=== PATIENT | female | born 1995 | race Caucasian/White ===

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

== ENCOUNTER 2017-02-13 16:12 | Emergency (ER) | payer BC ==
[~2017-02-13] VITALS: Ht 157.5 cm; Wt 63.5 kg
[2017-02-13 16:36] VITALS: BP 130/65
[2017-02-13] MEDS ORDERED: MORPHINE SULFATE 10 MG/ML VIAL. IM ONE (17:15)
[2017-02-13 17:22] LABS: BILIRUBIN,URINE NEGATIVE (NEG); GLUCOSE,URINE NEGATIVE (NEG); NITRITE,URINE NEGATIVE (NEG); PROTEIN,URINE NEGATIVE (NEG-TRACE); UROBILINOGEN,URINE 0.2 mg/dL (0.2 mg/dL)
--- NOTE | 2017-02-13 17:28 | PHYS DOC ---
Past Medical History Past Medical History: Endometriosis, Kidney Infection Additional Past Medical Histor: interstitial cystitis,COLITIS Past Surgical History: Other Additional Past Surgical Histo: exp lap x 2, cystoscopy Alcohol Use: None Drug Use: None Adult General Chief Complaint Chief Complaint: PELVIC PAIN [facility] HPI Patient is a 21 year old female who presents the emergency room with complaint of pelvic pain for the past 3 days. Patient also has a complaint of a mucoid discharge as well. Patient states that she had an IUD placed [address] José. She reports over no complications with insertion of the IUD. Patient does have a history of endometriosis and interstitial cystitis. She denies dysuria or hematuria. She denies fevers, chills, myalgias or arthralgias. Patient denies history of previous STDs or PID. Patient states that she took a [employer] 5/325 at approximately 1:30 or 2 PM today and states that it is not anything to "touch my pain". Review of Systems Review of Systems Constitutional: Denies fever or chills [] Eyes: Denies change in visual acuity, redness, or eye pain [] HENT: Denies nasal congestion or sore throat [] Respiratory: Denies cough or shortness of breath [] Cardiovascular: No additional information not addressed in HPI [] GI: Denies abdominal pain, nausea, vomiting, bloody stools or diarrhea [] : Denies dysuria or hematuria [] Musculoskeletal: Denies back pain or joint pain [] Integument: Denies rash or skin lesions [] Neurologic: Denies headache, focal weakness or sensory changes [] Endocrine: Denies polyuria or polydipsia [] Current Medications Current Medications Current Medications Medications (Trade) Dose Ordered Sig/Kaleb Start Time Stop Time Status Last Admin Dose Admin Acetaminophen/ Hydrocodone Bitart (Lortab 5/325) 2 tab 1X ONCE 02/13/17 19:15 02/13/17 19:16 DC 02/13/17 19:30 2 TAB Morphine Sulfate 5 mg 1X ONCE 02/13/17 17:15 02/13/17 17:16 DC 02/13/17 17:21 5 MG Allergies Allergies Allergies Coded Allergies Type Severity Reaction Last Updated Verified adhesive Allergy Intermediate 01/23/16 Yes latex Allergy Intermediate 01/23/16 Yes Physical Exam Physical Exam Constitutional: Well developed, well nourished, no acute distress, non-toxic appearance. Patient is afebrile. HENT: Normocephalic, atraumatic, bilateral external ears normal, oropharynx moist, no oral exudates, nose normal. [] Eyes: PERRLA, EOMI, conjunctiva normal, no discharge. [] Neck: Normal range of motion, no tenderness, supple, no stridor. [] Cardiovascular:Heart rate regular rhythm, no murmur [] Lungs & Thorax: Bilateral breath sounds clear to auscultation [] Abdomen: Patient's abdomen is soft and nondistended. There are normoactive bowel sounds normal quadrants. There is no palpable defect to the abdominal wall or pulsatile mass. Patient complains of suprapubic tenderness upon palpation. There is no guarding or rebound tenderness. Pelvic exam: External genitalia is normal in appearance. There is a scant amount of dark blood in the vaginal vault. Cervix is normal in appearance with 2 strings seen. There is no cervical motion tenderness. Bimanual exam reveals tenderness to palpation to the uterus and right adnexa. There is no palpable defect, deformity or mass. Skin: Warm, dry, no erythema, no rash. [] Back: No tenderness, no CVA tenderness. [] Extremities: No tenderness, no cyanosis, no clubbing, ROM intact, no edema. [] Neurologic: Alert and oriented X 3, normal motor function, normal sensory function, no focal deficits noted. [] Psychologic: Affect normal, judgement normal, mood normal. [] Current Patient Data Vital Signs Vital Signs Date Time Temp Pulse Resp B/P Pulse Ox O2 Delivery O2 Flow Rate FiO2 02/13/17 19:30 14 97 Room Air 02/13/17 16:36 98 90 130/65 98.0 Lab Values Laboratory Tests Test 02/13/17 15:55 02/13/17 16:43 POC Urine HCG, Qualitative Hcg negative (Negative) Urine Collection Type Unknown Urine Color Yellow Urine Clarity Clear Urine pH 7.0 Urine Specific [place] 1.020 Urine Protein Negativemg/dL (NEG-TRACE) Urine Glucose (UA) Negativemg/dL (NEG) Urine Ketones (Stick) Negativemg/dL (NEG) Urine Blood Large (NEG) Urine Nitrite Negative (NEG) Urine Bilirubin Negative (NEG) Urine Urobilinogen Dipstick 0.2mg/dL (0.2 mg/dL) Urine Leukocyte Esterase Moderate (NEG) Urine RBC 0/HPF (0-2) Urine WBC 20-40/HPF (0-4) Urine Squamous Epithelial Cells Mod/LPF Urine Bacteria 0/HPF (0-FEW) Microbiology 02/13/17 Wet Prep - Final, Complete EKG EKG [] Radiology/Procedures Radiology/Procedures [facility] [address] [place] [address] IMAGING REPORT Signed PATIENT: HARPER CARR ACCOUNT: [id number] : 1995 LOCATION: ER AGE: 21 SEX: F EXAM STATUS: REG ER ORD. PHYSICIAN: DWAINE HARE REASON: RIGHT adnexal pain, HCG negative PROCEDURE: PELVIS W/TV PROCEDURE Pelvic sonogram. HISTORY Right pelvic pain. TECHNIQUE Transabdominal and transvaginal. COMPARISON None available. FINDINGS The uterus measures 8.2 x 5.1 x 4.0 centimeter. The endometrial stripe measures 5.9 millimeter and contains an IUD. Bilateral ovaries are normal. The right ovary measures 3.8 x 3.5 x 3.5 centimeter and the left ovary measures 2.7 x 1.8 x 1.8 centimeter. There is a small complex cyst measuring 3.3 x 2.8 x 2.2 centimeter in the right ovary probably hemorrhagic. Left ovarian follicles. IMPRESSION Normal uterus and left ovary. Complex cyst measuring 3.3 x 2.8 x 2.2 centimeter in the right ovary likely a hemorrhagic cyst. Electronically signed by: Christine Recinos MD (Feb 13, 2017 19:22:31) DICTATED and SIGNED BY: CHRISTINE RECINOS MD DATE: 02/13/171921 CC: DWAINE HARE; LEORA LARA MD ~ Course & Med Decision Making Course & Med Decision Making Patient states that she has a history of ovarian cyst. This was during the physical exam and during the history taking. She states that she did talk to Dr. Maira José prior to coming in and it was recommended that an ultrasound be performed. The product evangelist informed nursing staff that patient is been seen several times at [facility] as well as this facility. Evidently, she changes her middle initial between a when she is seen here and L when she is seen at [facility]. Tim Disclaimer Tim Disclaimer This electronic medical record was generated, in whole or in part, using a voice recognition dictation system. Departure Departure Impression: Primary Impression: Pelvic pain Additional Impression: Ovarian cyst Disposition: HOME, SELF-CARE Condition: GOOD Referrals: LEORA LARA MD (PCP) FAITH JOSÉ MD Patient Instructions: Ovarian Cyst, [id number], Pelvic Pain, Female, Easy-to- Read Additional Instructions: 1. There is no evidence of a bacterial infection, ovarian torsion or need for surgery at this time. 2. Review the discharge instructions provided for self-care and reasons to return to the emergency department. 3. Contact Dr. José's office in the morning to schedule follow-up appointment. Scripts Hydrocodone/Apap 5-325 ([employer] 5-325 Tablet)1 Each Tablet1-2 Tab PO PRN Q6HRS PRN PAIN #20 TAB Prov:DWAINE HARE 02/13/17 Problem Qualifiers DWAINE HARE Feb 13, 2017 17:28
[2017-02-13 17:34] LABS: BACTERIA,URINE 0 /HPF (0-FEW); RBC,URINE 0 /HPF (0-2); SQUAMOUS EPITHELIAL CELL,UR MOD /LPF; WBC,URINE 20-40 /HPF (0-4)
[2017-02-13] MEDS ORDERED: HYDROCODONE/APAP 5/325MG TABLET. PO ONE (19:15)
--- NOTE | 2017-02-13 19:23 | RAD ---
PROCEDURE Pelvic sonogram. HISTORY Right pelvic pain. TECHNIQUE Transabdominal and transvaginal. COMPARISON None available. FINDINGS The uterus measures 8.2 x 5.1 x 4.0 centimeter. The endometrial stripe measures 5.9 millimeter and contains an IUD. Bilateral ovaries are normal. The right ovary measures 3.8 x 3.5 x 3.5 centimeter and the left ovary measures 2.7 x 1.8 x 1.8 centimeter. There is a small complex cyst measuring 3.3 x 2.8 x 2.2 centimeter in the right ovary probably hemorrhagic. Left ovarian follicles. IMPRESSION Normal uterus and left ovary. Complex cyst measuring 3.3 x 2.8 x 2.2 centimeter in the right ovary likely a hemorrhagic cyst. Electronically signed by: Christine Recinos MD (Feb 13, 2017 19:22:31)
[2017-02-13] MEDS ORDERED: HYDR-971 PO (19:31)
== END 2017-02-13 19:36 | disposition home or self-care (01) ==
LOC: ER 16:12
DX: N83.201 Unspecified ovarian cyst, right side (principal); Z91.040 Latex allergy status; Z91.048 Other nonmedicinal substance allergy status
CPT/HCPCS: 76830; 76856; 81001; 81025; 87086; 96372; 99285; J2270; Q0111

== ENCOUNTER 2017-05-06 15:14 | Emergency (ER) | payer BC, OTHER ==
[~2017-05-06] VITALS: Ht 157.5 cm; Wt 65.8 kg
[~2017-05-06 15:14] MED LIST: HYDR-971 PO
--- NOTE | 2017-05-06 15:25 | PHYS DOC ---
Past Medical History Past Medical History: Endometriosis, Kidney Infection Additional Past Medical Histor: interstitial cystitis,COLITIS Past Surgical History: Other Additional Past Surgical Histo: exp lap x 2, cystoscopy Alcohol Use: None Drug Use: None Adult General Chief Complaint Chief Complaint: PELVIC PAIN [facility] HPI 20-year-old female with a history of endometriosis status post 4 exploratory laparoscopies for chronic pelvic pain. Patient has also had anoscopy as well as multiple cystoscopies and has been diagnosed with tryst initial cystitis. She currently has an IUD in place and denies the possibility of . She presents today because of pelvic pain which she states is atypical for her as it feels like it goes into the right thigh. Denies low back pain. Baseline bowel and bladder habits with dysuria which is typical for her. Denies vaginal discharge or bleeding no odor. Pain is not worse with movement. She has no fevers chills sweats or shaking chills. No flank pain. Remainder of abdomen asymptomatic. Other than the pain in her midline pelvic area patient is asymptomatic and feels baseline Review of Systems Review of Systems Constitutional: Denies fever or chills [] Eyes: Denies change in visual acuity, redness, or eye pain [] HENT: Denies nasal congestion or sore throat [] Respiratory: Denies cough or shortness of breath [] Cardiovascular: No additional information not addressed in HPI [] GI: Denies abdominal pain, nausea, vomiting, bloody stools or diarrhea [] : Denies dysuria or hematuria [] Musculoskeletal: Denies back pain or joint pain [] Integument: Denies rash or skin lesions [] Neurologic: Denies headache, focal weakness or sensory changes [] Endocrine: Denies polyuria or polydipsia [] Current Medications Current Medications Current Medications Medications (Trade) Dose Ordered Sig/Kaleb Start Time Stop Time Status Last Admin Dose Admin Acetaminophen/ Hydrocodone Bitart (Lortab 5/325) 1 tab 1X ONCE 05/06/17 16:30 05/06/17 16:31 DC Allergies Allergies Allergies Coded Allergies Type Severity Reaction Last Updated Verified adhesive Allergy Intermediate 01/23/16 Yes latex Allergy Intermediate 01/23/16 Yes ketorolac Allergy Mild RASH 05/06/17 Yes pregabalin Allergy Mild NUMBNESS 05/06/17 Yes Physical Exam Physical Exam Well-appearing 21-year-old female smiling comfortable appearing no acute distress. Benign abdomen. Nondistended no mass or megaly. Minimal midline pelvic pain in the suprapubic distribution no guarding or rebound. Normal bowel sounds nontender McBurney's point. Constitutional: Well developed, well nourished, no acute distress, non-toxic appearance. [] HENT: Normocephalic, atraumatic, bilateral external ears normal, oropharynx moist, no oral exudates, nose normal. [] Eyes: PERRLA, EOMI, conjunctiva normal, no discharge. [] Neck: Normal range of motion, no tenderness, supple, no stridor. [] Cardiovascular:Heart rate regular rhythm, no murmur [] Lungs & Thorax: Bilateral breath sounds clear to auscultation [] Abdomen: Bowel sounds normal, soft, no tenderness, no masses, no pulsatile masses. [] Skin: Warm, dry, no erythema, no rash. [] Back: No tenderness, no CVA tenderness. [] Extremities: No tenderness, no cyanosis, no clubbing, ROM intact, no edema. [] Neurologic: Alert and oriented X 3, normal motor function, normal sensory function, no focal deficits noted. [] Psychologic: Affect normal, judgement normal, mood normal. [] Pelvic exam done with nurse present. Normal external genitalia. No discharge or odor. Normal cervix with IUD in place. No cervical motion tenderness. No adnexal mass or tenderness. Mild fundal tenderness per patient typical for her. No bleeding Current Patient Data Vital Signs Vital Signs Date Time Temp Pulse Resp B/P (MAP) Pulse Ox O2 Delivery O2 Flow Rate FiO2 05/06/17 17:23 94 17 117/73 (88) 98 Room Air 05/06/17 15:28 98.6 98.6 Lab Values Laboratory Tests Test 05/06/17 14:40 05/06/17 15:25 POC Urine HCG, Qualitative Hcg negative (Negative) Urine Collection Type Void Urine Color Yellow Urine Clarity Cloudy Urine pH 6.0 Urine Specific [place] 1.025 Urine Protein Negative mg/dL (NEG-TRACE) Urine Glucose (UA) Negative mg/dL (NEG) Urine Ketones (Stick) Negative mg/dL (NEG) Urine Blood Large (NEG) Urine Nitrite Negative (NEG) Urine Bilirubin Negative (NEG) Urine Urobilinogen Dipstick 0.2 mg/dL (0.2 mg/dL) Urine Leukocyte Esterase Moderate (NEG) Urine RBC 3-5 /HPF (0-2) Urine WBC >40 /HPF (0-4) Urine Squamous Epithelial Cells Many /LPF Urine Bacteria Many /HPF (0-FEW) Urine Mucus Slight /LPF EKG EKG [] Radiology/Procedures Radiology/Procedures [] Course & Med Decision Making Course & Med Decision Making Pertinent Labs and Imaging studies reviewed. (See chart for details). Signs and symptoms consistent with exacerbation of chronic pelvic pain which has been exhaustively and extensively worked up. Vital signs unremarkable. Pelvic exam benign. Ultrasound to rule out less likely possibility of torsion. Patient is not today. Urinalysis pending. If workup is unremarkable patient agrees with outpatient follow-up and strict return precautions will be given. Urinalysis is consistent with infection. We'll initiate treatment with Keflex. Urine culture will be pending for continued outpatient management and decision regarding whether this represents colonization versus acute infection. Ultrasound of the pelvis shows right adnexal cyst suspected ovarian cyst. Normal blood flow to both ovaries with no evidence of torsion. Patient is not no further workup or treatment is indicated. Prescription for Keflex given patient were to take outpatient analgesia regimen previously prescribed and follow-up with PCP and high lift driver regarding adnexal cyst. Patient agrees with outpatient follow-up and strict return precautions given. [] Dragon Disclaimer Dragon Disclaimer This electronic medical record was generated, in whole or in part, using a voice recognition dictation system. Departure Departure Impression: Primary Impression: Pelvic pain Disposition: HOME, SELF-CARE Condition: STABLE Referrals: NO PCP (PCP) Patient Instructions: Pelvic Pain, Female Additional Instructions: As you have experienced in the past, it is not clear today what the cause for your pelvic pain is. Your workup is unremarkable including an ultrasound of your ovaries and pelvis with no acute abnormality and you are not currently. Follow-up with your doctor tomorrow for reevaluation and referral for further workup and treatment as needed. Take ibuprofen and Tylenol as needed for pain and return immediately for new severe or worsening symptoms Scripts Cephalexin (KEFLEX) 500 Mg Capsule 1 CAP PO QID for 10 Days, #40 CAP Prov: FRANKO DUNBAR MD 05/06/17 FRANKO DUNBAR MD May 06, 2017 15:25
[2017-05-06 15:48] LABS: BILIRUBIN,URINE NEGATIVE (NEG); GLUCOSE,URINE NEGATIVE (NEG); NITRITE,URINE NEGATIVE (NEG); PROTEIN,URINE NEGATIVE (NEG-TRACE); UROBILINOGEN,URINE 0.2 mg/dL (0.2 mg/dL)
[2017-05-06 16:18] LABS: BACTERIA,URINE MANY /HPF (0-FEW); SQUAMOUS EPITHELIAL CELL,UR MANY /LPF; WBC,URINE >40 /HPF (0-4)
[2017-05-06] MEDS ORDERED: HYDROcodone/APAP 5/325MG 1 TAB TABLET PO ONE ×2 (16:30)
--- NOTE | 2017-05-06 17:00 | RAD ---
Indication pelvic pain. Initially a few transabdominal scans were obtained. These were supplemented with transvaginal scans. Note is made of a previous examination 02/13/2017. The hCG status is uncertain but for the purposes of this dictation will be assumed to be negative. The uterus measures approximately 8 x 4 x 5.5 cm. Endometrial thickness of approximately 11 mm is noted. There is an IUD. The IUD appears to have migrated relative to the previous exam and is now positioned low in the uterine body or as previously it appeared to be appropriately positioned in the body and fundus. The left ovary appears normal. The right ovary is somewhat enlarged measuring 5 cm. Within the right ovary there is a hypoechoic mass measuring approximately 3 cm in greatest dimension compatible with a physiologic cyst. It appears similar to the previous exam. Other etiologies including endometrioma or tubo-ovarian abscess are not excluded.. IMPRESSION: IUD is noted. The IUD however has migrated lower in the uterine cavity relative to the previous exam. Cystic mass right adnexa measuring approximately 3 cm. While this may represent a physiologic cyst other etiologies as discussed above are not excluded
[2017-05-06] MEDS ORDERED: NAPROXEN 500 MG TABLET PO ONE (18:15)
[2017-05-06] MEDS ORDERED: CEPH-264 PO (18:15)
[2017-05-06 18:20] VITALS: BP 122/76
== END 2017-05-06 18:26 | disposition home or self-care (01) ==
LOC: ER 15:14
DX: N39.0 Urinary tract infection, site not specified (principal); N85.8 Other specified noninflammatory disorders of uterus; G89.29 Other chronic pain; Z91.040 Latex allergy status; Z88.8 Allergy status to other drugs, medicaments and biological substances; Z91.048 Other nonmedicinal substance allergy status
CPT/HCPCS: 76830; 76856; 81001; 81025; 87086; 99285-25

== ENCOUNTER → 2017-12-08 | Outpatient (CLI) | payer OTHER ==
[2017-12-08 15:37] LABS: ADD MAN DIFF? NO
[2017-12-08 15:46] LABS: BASO # 0.1 x10^3/uL (0.0-0.2); BASO % 1 % (0-3); EOS # 0.5 x10^3/uL (0.0-0.7); EOS % 5 % (0-3); HEMATOCRIT 37.2 % (36.0-47.0); HEMOGLOBIN 12.6 g/dL (12.0-15.5); LYMPH % 22 % (24-48); MEAN CORPUSCULAR HEMOGLOBIN 30 pg (25-35); MEAN CORPUSCULAR HGB CONC 34 g/dL (31-37); MEAN CORPUSCULAR VOLUME 90 fL (79-100); MONO # 0.6 x10^3/uL (0.0-1.1); MONO % 7 % (0-9); NEUT % 65 % (31-73); PLATELET COUNT 193 x10^3/uL (140-400); RED BLOOD COUNT 4.14 x10^6/uL (3.50-5.40); RED CELL DISTRIBUTION WIDTH 16.3 % (11.5-14.5); WHITE BLOOD COUNT 9.2 x10^3/uL (4.0-11.0)
[2017-12-08 18:40] LABS: ALBUMIN 4.6 g/dL (3.4-5.0); ANION GAP 8 (6-14); BLOOD UREA NITROGEN 12 mg/dL (7-20); CALCIUM 9.3 mg/dL (8.5-10.1); CARBON DIOXIDE 30 mmol/L (21-32); CHLORIDE 99 mmol/L (98-107); CREATININE 0.6 mg/dL (0.6-1.0); GFR 127.5; GLUCOSE 115 mg/dL (70-99); POTASSIUM 3.5 mmol/L (3.5-5.1); SODIUM 137 mmol/L (136-145); TOTAL BILIRUBIN 0.2 mg/dL (0.2-1.0)
== END | disposition home or self-care (01) ==
LOC: SURGPAT 13:17
DX: Z01.818 Encounter for other preprocedural examination (principal); R10.11 Right upper quadrant pain
CPT/HCPCS: 36415; 80048; 82040; 82247; 85025

== ENCOUNTER 2017-12-16 10:01 | Day surgery (SDC) | payer OTHER ==
[~2017-12-16 10:01] MED LIST changes: +BUPIVACAINE-EPI 0.25%-1:200000 50 ML VIAL.; +GLUCAGON,HUMAN RECOMBINANT 1 MG/ML VIAL.; -HYDR-971 PO; +HYDROmorphone 2 MG/ML VIAL IV; +IOHEXOL 300 MG/ML 100ML VIAL.; +LIDOCAINE 1% PF 2 ML VIAL. ID; +MORPHINE SULFATE 2 MG/ML DISP.SYRIN. IV; +ONDANSETRON PF 4 MG/2 ML VIAL. IV; +SURGICEL HEMOSTAT 4X8 EACH.; +ceFAZolin 2GM PREMIX 2 GM/50 ML BAG IV; +fentaNYL PF VIAL 100 MCG/2 ML VIAL IV
[2017-12-16] MEDS ORDERED: BUPIVAC MPF-EPI 0.5%-1:200000 30 ML VIAL. (10:38)
[2017-12-16] MEDS: IV RINGERS,LACTATED 1000ML 1,000 ML IV (10:43)
[2017-12-16] MEDS ORDERED: SUCCINYLCHOLINE 200 MG/10 ML VIAL. (10:43)
[2017-12-16] MEDS ORDERED: DEXAMETHASONE SOD PHOS 20 MG/5 ML VIAL. (10:43)
[2017-12-16] MEDS ORDERED: ONDANSETRON PF 4 MG/2 ML VIAL. (10:43)
[2017-12-16] MEDS ORDERED: ROCURONIUM 50 MG/5 ML VIAL. (10:43)
[2017-12-16] MEDS ORDERED: PROPOFOL 20 ML IV (10:43)
[2017-12-16] MEDS ORDERED: LIDOCAINE 2% PF Vial for OR 5 ML VIAL. (10:43)
[2017-12-16] MEDS ORDERED: MIDAZOLAM HCL/PF 2 MG/2 ML VIAL. (10:44)
[2017-12-16] MEDS ORDERED: fentaNYL PF VIAL 100 MCG/2 ML VIAL (10:44)
[2017-12-16] MEDS ORDERED: KETOROLAC 30 MG/ML INJ FOR OR. INJ (10:44)
[2017-12-16] MEDS ORDERED: FAMOTIDINE 20 MG/2 ML VIAL (10:46)
[2017-12-16 10:50] LABS: NEG OBC UR NEG; POS OBC UR POS; U PREG PATIENT NEGATIVE (NEG)
[2017-12-16] MEDS: SCOPOLAMINE 1.5MG PATCH. TD (11:08)
[2017-12-16] MEDS ORDERED: diphenhydrAMINE 50 MG/ML VIAL (11:28)
[2017-12-16] MEDS ORDERED: NEOSTIGMINE METHYLSULFATE 5 MG/5 ML SYRINGE. (12:01)
[2017-12-16] MEDS ORDERED: GLYCOPYRROLATE 1 MG/5 ML VIAL. (12:01)
[2017-12-16] MEDS ORDERED: SEVOFLURANE 31 TO 60 MINUTES. IH (12:04)
[2017-12-16] MEDS: BUPIVAC MPF-EPI 0.5%-1:200000 30 ML VIAL. INJ (12:25)
[2017-12-16] MEDS: fentaNYL PF VIAL 100 MCG/2 ML VIAL IV ×2 (12:42→12:56)
[2017-12-16] MEDS: PROCHLORPERAZINE 10 MG/2 ML VIAL. IV (12:43)
[2017-12-16] MEDS: oxyCODONE/APAP 5/325 1 TAB TABLET PO (13:55)
== END 2017-12-16 14:43 | disposition home or self-care (01) ==
LOC: SURG 10:01
DX: K81.9 Cholecystitis, unspecified (principal); K21.9 Gastro-esophageal reflux disease without esophagitis; J45.909 Unspecified asthma, uncomplicated; F41.9 Anxiety disorder, unspecified; F32.9 Major depressive disorder, single episode, unspecified; Z87.440 Personal history of urinary (tract) infections; Z91.040 Latex allergy status; Z91.048 Other nonmedicinal substance allergy status; Z86.2 Personal history of diseases of the blood and blood-forming organs and certain disorders involving the immune mechanism; Z98.890 Other specified postprocedural states
CPT/HCPCS: 47563; 74300; 81025; 88304; J0330; J0690; J0780; J1100; J1200; J1610; J1885; J2250; J2405; J2704; J2710; J3010; J3490; J7030; J7120; Q9967; S0028